=== PATIENT | female | born 1970 | race Caucasian/White ===

== ENCOUNTER → 2018-05-03 | Outpatient (CLI) | payer BC | END | disposition home or self-care (01) | LOC: LAB SHORT 14:26 → LAB EV 14:26 | DX: N39.0 Urinary tract infection, site not specified (principal) | CPT/HCPCS: 87077; 87086; 87186 ==

== ENCOUNTER → 2020-10-31 | Outpatient (CLI) | payer BC | LOC: LAB SHORT 19:15 → LAB 19:15 | DX: N89.8 Other specified noninflammatory disorders of vagina (principal) | CPT/HCPCS: 87070; 87205 ==

== ENCOUNTER 2023-03-13 07:41 | Day surgery (SDC) | payer OTHER, BC ==
[~2023-03-13] VITALS: Ht 170.2 cm; Wt 87.0 kg
[2023-03-13] MEDS ORDERED: MELO7.5 PO (07:51)
[2023-03-13] MEDS ORDERED: ESTRADIOL1 M1 PO (07:54)
[2023-03-13] MEDS ORDERED: Adipex-P37.5 M1 PO (07:55)
[2023-03-13] MEDS ORDERED: PROG100 PO (07:59)
[2023-03-13 09:44] VITALS: BP 122/74
--- NOTE | 2023-03-13 09:50 | NUR ---
03/13/23 0950 Joann Hoskins IV, DC'Debo WNL, CATH INTACT. PT TOLERATED WELL, SITE WRAPPED IN COBAN
== END 2023-03-13 09:39 | disposition home or self-care (01) ==
LOC: ORSCSDS 07:41
PROVIDERS: Internal Medicine Gastroenterology
PROC: 0DJD8ZZ Inspection of Lower Intestinal Tract, Via Natural or Artificial Opening Endoscopic (ICD-10-PCS; principal; 2023-03-13 08:45)
DX: Z12.11 Encounter for screening for malignant neoplasm of colon (principal); K64.8 Other hemorrhoids; K57.30 Diverticulosis of large intestine without perforation or abscess without bleeding; Z68.30 Body mass index [BMI] 30.0-30.9, adult; Z79.899 Other long term (current) drug therapy
CPT/HCPCS: J2704; J7120

== ENCOUNTER → 2024-04-16 | Outpatient (CLI) | payer OTHER, BC ==
[~2024-04-16] MED LIST: Adipex-P37.5 M1 PO; ESTRADIOL1 M1 PO; MELO7.5 PO; PROG100 PO
== END | disposition home or self-care (01) ==
LOC: LAB 18:00 → LAB SHORT 18:00
DX: N39.0 Urinary tract infection, site not specified (principal)
CPT/HCPCS: 87086